=== PATIENT | female | born 1990 | race Caucasian/White ===

== ENCOUNTER 2021-07-04 14:37 | Outpatient (REF) | payer MEDICAID, SELFPAY ==
[2021-07-05 01:18] LABS: CT PCR NOT DETECTED (Not Detect.); NG PCR NOT DETECTED (Not Detect.)
[2021-07-05 09:30] LABS: BV Int Neg Control Negative (Negative); BV Int Pos Control Positive (Positive)
[2021-07-06 15:01] LABS: HPV mRNA E6/E7 Not Detected (Not Detected)
== END 2021-07-04 14:38 | disposition home or self-care (01) ==
LOC: HO.LAB 14:37
PROVIDERS: Visit Provider Obstetrics & Gynecology
DX: Z01.419 Encounter for gynecological examination (general) (routine) without abnormal findings (principal); Z11.3 Encounter for screening for infections with a predominantly sexual mode of transmission
CPT/HCPCS: 87480; 87491; 87510; 87591; 87624; 87660; 88142; 99212

== ENCOUNTER 2021-12-18 15:39 | Outpatient (REF) | payer MEDICAID, SELFPAY ==
[2021-12-18 18:34] LABS: Appearance Urine CLEAR; Color Urine YELLOW; Glucose Urine UA NEG (NEG); Leukocyte Esterase Urine NEG (NEG); Nitrite Urine NEG (NEG); UACC Culture Trigger NO; Urine Blood NEG (NEG); Urine Ketones NEG (NEG); Urine Protein 2+ MG/DL (NEG-TRACE)
[2021-12-18 18:58] LABS: Bacteria Urine 2+ /LPF; Mucus Urine 1+ /LPF; RBC Urine 0 /HPF (0); Squamous Epithelial Cell Urine 2+ /LPF; WBC Urine 0 /HPF (0-4)
[2021-12-19 03:04] LABS: CT PCR NOT DETECTED (Not Detect.); NG PCR NOT DETECTED (Not Detect.)
== END 2021-12-18 15:40 | disposition home or self-care (01) ==
LOC: HO.MANLDS 15:39
PROVIDERS: PCP Physician Assistant; Visit Provider Physician Assistant
DX: Z11.3 Encounter for screening for infections with a predominantly sexual mode of transmission (principal)
CPT/HCPCS: 81001; 87491; 87591

== ENCOUNTER 2022-09-19 15:09 | Outpatient (REF) | payer MEDICAID, SELFPAY ==
[2022-09-19 18:04] LABS: CT PCR NOT DETECTED (Not Detect.); NG PCR NOT DETECTED (Not Detect.)
[2022-09-20 08:55] LABS: HBsAGNum1 0.31 S/CO (0.00-0.99); HIV AB/AG Nonreactive (Nonreactive); HIV Num 1 0.07 S/CO (0.00-0.99); Hepatitis B Surface Antigen Negative (Negative); ~HepC Num1 0.11 S/CO (0.00-0.79); ~Hepatitis C Antibody Nonreactive (Nonreactive)
[2022-09-20 08:58] LABS: Syphilis Screen Nonreactive (Nonreactive)
[2022-09-20 12:31] LABS: BV Int Neg Control Negative (Negative); BV Int Pos Control Positive (Positive)
[2022-09-24 16:29] LABS: HPV mRNA E6/E7 rflx Not Detected (Not Detected)
== END 2022-09-19 15:10 | disposition home or self-care (01) ==
LOC: HO.LAB 15:09
PROVIDERS: PCP Physician Assistant; Visit Provider Obstetrics & Gynecology
DX: Z01.419 Encounter for gynecological examination (general) (routine) without abnormal findings (principal); Z11.3 Encounter for screening for infections with a predominantly sexual mode of transmission
CPT/HCPCS: 0353U; 86780; 86803; 87340; 87389; 87480; 87510; 87624; 87660; 88142

== ENCOUNTER 2023-08-07 14:36 | Outpatient (AMB) | payer MEDICAID, SELFPAY ==
[2023-08-07 14:38] VITALS: BP 106/60; BMI 24.0
--- NOTE | 2023-08-07 14:38 | MHC.OFFVIS ---
Intake Vital Signs 08/07/23 14:38 Height 5 ft 2 in Weight 131 lb BMI 24.0 BP 106/60 Intake Visit Reasons: irregular periods/ DO NOT RS Textiles Sales Representative Required: No Information Interpreted: non-clinical & clinical Inside Wirer: Inside Wirer Present (Rosmery GRIFFITH) Accompanied by: Self / Same As Patient Allergies No Known Allergies [No Known Allergies*] Allergy (Verified 08/07/23 14:45) Is last menstrual period known: Yes Last menstrual period: 07/23/23 HPI HPI Comments History of Present Illness Details Presenting complaining of irregular menstrual cycles the last 2 months. No associated hair growth or nipple discharge, last co testing was in 09/27 3- [facility] Medical History KWASI III (cervical intraepithelial neoplasia grade III) with severe dysplasia ASCUS of cervix with negative high risk HPV Social History Patient Tobacco Use Status: Never used Tobacco Female Reproductive History Menstrual Age of Menarche: 10 Date of last menstrual period: 07/23/23 Review of Systems Const All systems reviewed & are unremarkable except as noted in HPI and below Physical Exam Vital Signs: Last Vital Signs BP 106/60 08/07/23 14:38 BMI result Body Mass Index 24.0 General: Yes no CVA tenderness External Female Exam: normal external appearance and normal appearance of the urethra Speculum Exam - Vagina: normal appearance of the vagina, normal palpation, no lesions and no masses Speculum Exam - Cervix: normal appearance of the cervix, normal palpation, no lesions, no masses and nontender Bimanual exam- vagina & uterus: normal bimanual exam, normal palpation, uterine size normal, normal palpation, uterine shape normal, No Cervical tenderness present and non-tender Bimanual Exam- Adnexa, other: normal adnexae Back/Spine/Pelvis Back: no CVA tenderness Results AMB Test Urine AMB Test Urine Negative Last Edit by Rosmery Mcnair CMA on 08/07/23 14:48 Results Reviewed Results Reviewed: Laboratory Last Values Tst Clinic Negative 08/07/23 14:48 Assessment & Plan Assessment & Plan (1) Abnormal uterine bleeding: Code(s): N93.9 - Abnormal uterine and vaginal bleeding, unspecified Plan: Co testing not indicate, GC and chlamydia taken CBC, TSH, prolactin, HCG, and pelvic ultrasound ordered. Discussed with the patient the different causes of abnormal bleeding including thyroid disorders, uterine and ovarian pathology, endometrial hyperplasia, carcinoma and other potential causes. Discussed with the patient the work up including CBC (to r/o anemia), TSH, pelvic Ultrasound, endometrial biopsy to r/o endometrial pathology. All questions answered and the patient verbalized understanding. Instructed the patient to schedule an appointment for an endometrial biopsy in 2 weeks. Orders: Orders Complete Blood Count no Diff Today N93.9 - Abnormal uterine and vaginal bleeding, unspecified US pelvic and transvaginal Today N93.9 - Abnormal uterine and vaginal bleeding, unspecified TSH reflex Free T4 Today N93.9 - Abnormal uterine and vaginal bleeding, unspecified Prolactin Today N93.9 - Abnormal uterine and vaginal bleeding, unspecified AMB HCG Urine Test Today Z32.02 - Encounter for test, result negative CT NG by PCR Today Z01.419 - Encounter for gynecological examination (general) (routine) without abnormal findings HCG Quantitative Today N93.9 - Abnormal uterine and vaginal bleeding, unspecified Coding Level of Care Code Est Pt Level 3 (56086) Diagnoses Abnormal uterine bleeding N93.9
== END 2023-08-07 14:57 | disposition home or self-care (01) ==
PROVIDERS: PCP Physician Assistant; Visit Provider Obstetrics & Gynecology
DX: Z32.02 Encounter for pregnancy test, result negative (principal); N93.9 Abnormal uterine and vaginal bleeding, unspecified
CPT/HCPCS: 99213

== ENCOUNTER 2023-08-07 14:36 | Outpatient (REF) | payer MEDICAID, SELFPAY ==
[2023-08-07 15:35] LABS: Hematocrit 36.5 % (37.0-47.0); Mean Corpuscular HGB Conc 32.9 g/dl (31.0-35.0); Mean Corpuscular Volume 79.2 fL (80.0-98.0); Platelet Count 355 X10*3/uL (160-400); Red Blood Count 4.61 X10*6/uL (4.20-5.50); Red Cell Distribution Width 12.1 % (11.0-16.0); White Blood Count 8.6 X10*3/uL (4.8-10.8)
[2023-08-07 16:44] LABS: HCG Quantitative < 2 mIU/mL; TSH reflex Free T4 0.48 uIU/mL (0.32-4.0)
[2023-08-08 03:53] LABS: CT PCR DETECTED (Not Detect.); NG PCR NOT DETECTED (Not Detect.)
== END 2023-08-07 14:37 | disposition home or self-care (01) ==
LOC: HO.LAB 14:36
PROVIDERS: PCP Physician Assistant; Visit Provider Obstetrics & Gynecology
DX: Z32.02 Encounter for pregnancy test, result negative (principal); N93.9 Abnormal uterine and vaginal bleeding, unspecified
CPT/HCPCS: 0353U; 81025; 84146; 84443; 84702; 85027; 99212

== ENCOUNTER 2023-08-07 15:49 | Outpatient (REF) | payer MEDICAID, SELFPAY | END 2023-08-07 15:50 | disposition home or self-care (01) | LOC: HO.LNP 15:49 | PROVIDERS: Visit Provider Obstetrics & Gynecology | DX: Z13.89 Encounter for screening for other disorder (principal) ==

== ENCOUNTER 2023-08-20 11:37 | Outpatient (REF) | payer MEDICAID, SELFPAY | END 2023-08-20 11:38 | disposition home or self-care (01) | LOC: HO.LNP 11:37 | PROVIDERS: PCP Physician Assistant; Visit Provider Obstetrics & Gynecology | DX: A74.9 Chlamydial infection, unspecified (principal) | CPT/HCPCS: 0353U; 86780; 86803; 87340; 87389; 99212 ==

== ENCOUNTER 2023-08-20 11:37 | Outpatient (AMB) | payer MEDICAID, SELFPAY ==
[2023-08-20 11:44] VITALS: BP 120/70; BMI 23.8
--- NOTE | 2023-08-20 11:44 | MHC.OFFVIS ---
Intake Vital Signs 08/20/23 11:44 Height 5 ft 2 in Weight 130 lb 1.164 oz BMI 23.8 BP 120/70 Intake Visit Reasons: 2 week jaycee Hyster Machine Operator Required: No Information Interpreted: non-clinical & clinical Business Computers Teacher: Business Computers Teacher Present (Rosmery Mcnair GLADIS) Accompanied by: Self / Same As Patient Allergies No Known Allergies [No Known Allergies*] Allergy (Verified 08/20/23 11:45) Is last menstrual period known: Yes Last menstrual period: 08/09/23 HPI HPI Comments History of Present Illness Details The patient is presenting for a test of cure. The patient took the antibiotics course; she informed her partner who was treated too. The patient reports no unprotected intercourse to during the for 7 days of treatment [facility] Medical History KWASI III (cervical intraepithelial neoplasia grade III) with severe dysplasia ASCUS of cervix with negative high risk HPV Social History Patient Tobacco Use Status: Never used Tobacco Female Reproductive History Menstrual Age of Menarche: 10 Date of last menstrual period: 08/09/23 Review of Systems Const All systems reviewed & are unremarkable except as noted in HPI and below Physical Exam Vital Signs: Last Vital Signs BP 120/70 08/20/23 11:44 BMI result Body Mass Index 23.8 General: Yes no CVA tenderness External Female Exam: normal external appearance and normal appearance of the urethra Speculum Exam - Vagina: normal appearance of the vagina, normal palpation, no lesions and no masses Speculum Exam - Cervix: normal appearance of the cervix, normal palpation, no lesions, no masses and nontender Bimanual exam- vagina & uterus: normal bimanual exam, normal palpation, uterine size normal, normal palpation, uterine shape normal, No Cervical tenderness present and non-tender Bimanual Exam- Adnexa, other: normal adnexae Back/Spine/Pelvis Back: no CVA tenderness Assessment & Plan Assessment & Plan (1) Chlamydia: Comment: Treated, for test of cure Code(s): A74.9 - Chlamydial infection, unspecified Plan: GC and chlamydia taken, serology for STD including hepatitis-B surface antigen, hepatitis-C antibody, HIV and syphilis ordered. Instruction given to patient to schedule 3 months test of cure appointment. All questions answered, the patient verbalized understanding. Orders: Orders Syphilis Screen Today Z20.2 - Contact with and (suspected) exposure to infections with a predominantly sexual mode of transmission CT NG by PCR Today A74.9 - Chlamydial infection, unspecified HIV Ab/Ag Today Z20.2 - Contact with and (suspected) exposure to infections with a predominantly sexual mode of transmission Hepatitis C Antibody Today Z20.2 - Contact with and (suspected) exposure to infections with a predominantly sexual mode of transmission Hepatitis B Surface Antigen Today Z20.2 - Contact with and (suspected) exposure to infections with a predominantly sexual mode of transmission Coding Level of Care Code Est Pt Level 3 (60978) Diagnoses Chlamydia A74.9
== END 2023-08-20 11:56 | disposition home or self-care (01) ==
PROVIDERS: PCP Physician Assistant; Visit Provider Obstetrics & Gynecology
DX: A74.9 Chlamydial infection, unspecified (principal)
CPT/HCPCS: 99213

== ENCOUNTER 2023-08-20 12:00 | Outpatient (REF) | payer MEDICAID, SELFPAY ==
[2023-08-20 13:22] LABS: Syphilis Screen Nonreactive (Nonreactive)
[2023-08-20 16:24] LABS: CT PCR DETECTED (Not Detect.); NG PCR NOT DETECTED (Not Detect.)
[2023-08-21 08:04] LABS: HBsAGNum1 0.49 S/CO (0.00-0.99); HIV AB/AG Nonreactive (Nonreactive); HIV Num 1 0.08 S/CO (0.00-0.99); Hepatitis B Surface Antigen Negative (Negative); ~HepC Num1 0.13 S/CO (0.00-0.79); ~Hepatitis C Antibody Nonreactive (Nonreactive)
== END 2023-08-20 12:01 | disposition home or self-care (01) ==
LOC: HO.LAB 12:00
PROVIDERS: Visit Provider Obstetrics & Gynecology
DX: Z11.4 Encounter for screening for human immunodeficiency virus [HIV] (principal); Z20.2 Contact with and (suspected) exposure to infections with a predominantly sexual mode of transmission; A74.9 Chlamydial infection, unspecified
CPT/HCPCS: 0353U; 86780; 86803; 87340; 87389

== ENCOUNTER 2023-09-11 12:34 | Outpatient (REF) | payer MEDICAID, SELFPAY | END 2023-09-11 12:35 | disposition home or self-care (01) | LOC: HO.LNP 12:34 | PROVIDERS: PCP Physician Assistant; Visit Provider Obstetrics & Gynecology | DX: A74.9 Chlamydial infection, unspecified (principal); Z11.3 Encounter for screening for infections with a predominantly sexual mode of transmission | CPT/HCPCS: 0353U; 99212 ==

== ENCOUNTER 2023-09-11 12:34 | Outpatient (AMB) | payer MEDICAID, SELFPAY ==
--- NOTE | 2023-09-11 12:40 | MHC.OFFVIS ---
Intake Vital Signs 09/11/23 12:41 Height 5 ft 2 in BP 104/62 Intake Visit Reasons: NITIN 2 week Administrative Assistant Coordinator: Administrative Assistant Coordinator Present (Rosmery) Allergies No Known Allergies [No Known Allergies*] Allergy (Verified 09/11/23 12:41) Is last menstrual period known: Yes Last menstrual period: 09/08/23 HPI HPI Comments History of Present Illness Details The patient is presenting for a test of cure. The patient took the antibiotics course; she informed her partner who was treated too. The patient reports no intercourse since then. [facility] Medical History KWASI III (cervical intraepithelial neoplasia grade III) with severe dysplasia ASCUS of cervix with negative high risk HPV Social History Patient Tobacco Use Status: Never used Tobacco Female Reproductive History Menstrual Age of Menarche: 10 Date of last menstrual period: 09/08/23 Review of Systems Const All systems reviewed & are unremarkable except as noted in HPI and below Physical Exam Vital Signs: Last Vital Signs BP 104/62 09/11/23 12:41 General: Yes no CVA tenderness External Female Exam: normal external appearance and normal appearance of the urethra Speculum Exam - Vagina: normal appearance of the vagina, normal palpation, no lesions and no masses Speculum Exam - Cervix: normal appearance of the cervix, normal palpation, no lesions, no masses and nontender Bimanual exam- vagina & uterus: normal bimanual exam, normal palpation, uterine size normal, normal palpation, uterine shape normal, No Cervical tenderness present and non-tender Bimanual Exam- Adnexa, other: normal adnexae Back/Spine/Pelvis Back: no CVA tenderness Assessment & Plan Assessment & Plan (1) Chlamydia: Comment: Treated, for test of cure Code(s): A74.9 - Chlamydial infection, unspecified Plan: GC/CT taken. Will Check the results and treat accordingly. Coding Level of Care Code Est Pt Level 3 (05488) Diagnoses Chlamydia A74.9
[2023-09-11 12:41] VITALS: BP 104/62
== END 2023-09-11 13:07 | disposition home or self-care (01) ==
LOC: HO.HWS 12:34
PROVIDERS: PCP Physician Assistant; Referring Provider Physician Assistant; Visit Provider Obstetrics & Gynecology
DX: A74.9 Chlamydial infection, unspecified (principal)
CPT/HCPCS: 99213

== ENCOUNTER 2023-09-24 15:19 | Outpatient (AMB) | payer MEDICAID, SELFPAY ==
--- NOTE | 2023-09-24 15:21 | A.OFFVIS_ITS ---
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 No complaints. Last Pap/HPV was negative in 09/30 [facility] Medical History (Updated 09/24/23 @ 15:32 by Sam Desai MD) KWASI III (cervical intraepithelial neoplasia grade III) with severe dysplasia ASCUS of cervix with negative high risk HPV Family History Maternal Grandmother Stroke Diabetes HTN (hypertension) Social History Household Members Other:: son ,roomate Housing: Apartment Alcohol intake: former Patient Tobacco Use Status: Current someday Tobacco user Years Smoked: social smoker Current occupational status: employed Current occupation: [employer] Sexually active: Yes Sexual orientation: Straight/Heterosexual Gender identity: Female Female Reproductive History Menstrual Age of Menarche: 10 Date of last menstrual period: 09/08/23 Total pregnancies: 1 Full term: 1 Number of Living Children: 1 Date of last pap smear: 09/20/22 Review of Systems Const All systems reviewed & are unremarkable except as noted in HPI and below Card Reports as per HPI Resp Reports as per HPI GI Reports as per HPI and Reports no additional complaints Reports as per HPI Physical Exam Vital Signs: Last Vital Signs BP 98/62 09/24/23 15:24 BMI result Body Mass Index 23.8 Const General: cooperative, healthy appearing and comfortable Chest Chest palpation & inspection: normal inspection of the chest and normal palpation of entire chest wall Breast/axilla inspection: normal inspection of the breasts and normal inspection of the axillae Breast/axilla palpation: normal palpation of the breasts, normal palpation of the axillae and no axillary lymphadenopathy Resp Effort & Inspection: normal respiratory effort Auscultation: clear to auscultation bilaterally Percussion: percussion normal Cardio Palpation: normal PMI Rate: regular rate Rhythm: regular rhythm Heart sounds: no murmurs and no rubs Peripheral pulses: Peripheral pulses 2+ throughout GI Inspection: Yes normal to inspection Palpation (GI): Soft to palpation, nontender, no guarding, not rigid and No hepatosplenomegaly present Percussion: Yes normal to percussion Auscultation: normal bowel sounds Rectal Exam - Female: deferred General: Yes bladder normal to palpation External Female Exam: No lesion Speculum Exam - Vagina: normal appearance of the vagina, normal palpation, normal vaginal discharge and not erythematous Speculum Exam - Cervix: normal appearance of the cervix and normal palpation Bimanual exam- vagina & uterus: normal bimanual exam, normal palpation, uterine size normal, bladder normal to palpation, consistency normal and normal palpation Bimanual Exam- Adnexa, other: normal adnexae, no masses and no tenderness Assessment & Plan Assessment & Plan (1) Well woman exam: Comment: 04/27 KWASI 1 preceded by KWASI 3 in 2014 status post LEEP with positive margin followed by negative co testing in 06/28 Code(s): Z01.419 - Encounter for gynecological examination (general) (routine) without abnormal findings Plan: Cotesting done. Counseled the patient about the recommended dietary allowance of 1000 mg of Calcium & 600 IU of vitamin D. The patient was instructed to perform monthly self-breast exams and to schedule an annual exam in a year; All questions answered and the patient verbalized understanding. Instructed the patient to schedule annual exam in a year Coding Level of Care Code Est Pt Prev Care 18-39y(75795) Diagnoses Well woman exam Z01.419
[2023-09-24 15:24] VITALS: BP 98/62; BMI 23.8
== END 2023-09-24 15:52 | disposition home or self-care (01) ==
LOC: HO.HWS 15:19
PROVIDERS: PCP Physician Assistant; Referring Provider Physician Assistant; Visit Provider Obstetrics & Gynecology
DX: Z01.419 Encounter for gynecological examination (general) (routine) without abnormal findings (principal)
CPT/HCPCS: 99395

== ENCOUNTER 2023-09-24 15:19 | Outpatient (REF) | payer MEDICAID, SELFPAY ==
[2023-09-27 04:49] LABS: HPV mRNA E6/E7 rflx Not Detected (Not Detected)
== END 2023-09-24 15:20 | disposition home or self-care (01) ==
LOC: HO.LNP 15:19
PROVIDERS: PCP Physician Assistant; Visit Provider Obstetrics & Gynecology
DX: Z01.419 Encounter for gynecological examination (general) (routine) without abnormal findings (principal); Z11.51 Encounter for screening for human papillomavirus (HPV)
CPT/HCPCS: 87624; 88142; 99395

== ENCOUNTER 2023-10-01 14:38 | Outpatient (REF) | payer MEDICAID, SELFPAY ==
--- NOTE | ~2023-10-01 | US_ITS ---
EXAMINATION: US PELVIS CLINICAL INFORMATION: Abnormal uterine and vaginal bleeding, unspecified COMPARISON: None available. TECHNIQUE: Ultrasound of the pelvis is performed using both transabdominal and transvaginal transducers along with Doppler. Transvaginal imaging is performed due to inadequate visualization transabdominally. FINDINGS: Uterus: The uterus is anteverted and measures 8.3 x 4.4 x 5.6 cm. There are multiple small fibroids includin.1 x 1.0 x 1.0 cm exophytic anterior right 1.4 x 1.0 x 1.4 cm subserosal posterior right 1.7 x 1.4 x 1.8 cm subserosal posterior right 1.7 x 1.3 x 1.7 cm subserosal posterior right 1.6 x 1.4 x 1.9 cm subserosal/partly exophytic anterior left The endometrium measures 0.9 cm. The cervix is status post procedure with shadowing, likely scar seen. Adnexa: Both ovaries are visualized. There is normal color flow to the adnexa. There is no ovarian torsion. There is no pelvic ascites or fluid collection. Both ovaries are normal in appearance. Right ovary measures 4.1 x 2.5 x 1.7 cm. Volume 9.1 mL. Left ovary measures 3.5 x 2.7 x 2.1 cm. Volume 10.4 mL. US/US pelvic and transvaginal IMPRESSION: 1. Multiple small fibroids. 2. Normal ovaries.
== END 2023-10-01 14:39 | disposition home or self-care (01) ==
LOC: HO.US 14:38
PROVIDERS: PCP Physician Assistant; Visit Provider Obstetrics & Gynecology
DX: N93.9 Abnormal uterine and vaginal bleeding, unspecified (principal)
CPT/HCPCS: 76830; 76856

== ENCOUNTER 2023-10-29 14:34 | Outpatient (REF) | payer MEDICAID, SELFPAY | END 2023-10-29 14:35 | disposition home or self-care (01) | LOC: HO.LNP 14:34 | PROVIDERS: PCP Physician Assistant; Visit Provider Obstetrics & Gynecology | DX: N93.9 Abnormal uterine and vaginal bleeding, unspecified (principal) | CPT/HCPCS: 58100; 81025; 88305 ==

== ENCOUNTER 2023-10-29 14:34 | Outpatient (AMB) | payer MEDICAID, SELFPAY ==
--- NOTE | 2023-10-29 14:37 | MHC.OFFVIS ---
Intake Vital Signs 10/29/23 14:51 Height 5 ft 2 in Weight 130 lb 1.164 oz BMI 23.8 BP 110/74 Intake Visit Reasons: Us follow up/EMB Computer Applications Engineer Required: No Information Interpreted: non-clinical & clinical Milling General Superintendent: Milling General Superintendent Present (Rosmery GRIFFITH) Accompanied by: Self / Same As Patient Allergies No Known Allergies [No Known Allergies*] Allergy (Verified 10/29/23 14:52) Is last menstrual period known: Yes Last menstrual period: 10/27/23 HPI HPI Comments History of Present Illness Details Presenting for EMB PFSH Medical History KWASI III (cervical intraepithelial neoplasia grade III) with severe dysplasia ASCUS of cervix with negative high risk HPV Family History Maternal Grandmother Stroke Diabetes HTN (hypertension) Social History Household Members Other:: son ,roomate Housing: Apartment Alcohol intake: former Patient Tobacco Use Status: Current someday Tobacco user Years Smoked: social smoker Current occupational status: employed Current occupation: [employer] Sexual orientation: Straight/Heterosexual Gender identity: Female Female Reproductive History Menstrual Age of Menarche: 10 Date of last menstrual period: 10/27/23 Review of Systems Const All systems reviewed & are unremarkable except as noted in HPI and below Reports as per HPI and Reports no additional complaints GI Reports no additional complaints Reports no additional complaints Office Procedures Endometrial Biopsy Details: The patient was counseled regarding the indication and benefits of endometrial sampling to rule out endometrial pathology including not limited to endometrial hyperplasia or endometrial cancer and others; The alternatives (Either do nothing vs. hysteroscopy D&C) & the risks were discussed with the patient including but not limited: pain, uterine perforation, bleeding, infection, possible injury to bladder, bowel, ureter, possible need for blood transfusion with all its possible risks. The patient verbalized understanding all questions answered and signed consent. Urine test done in the office was negative The patient was placed into the dorsal lithotomy position; a speculum was inserted in the vagina. Using aseptic technique for the procedure, the cervix was cleansed with Betadine. The anterior lip of the cervix was grasped with a single tooth tenaculum. The uterus was sounded to 7 cm with a 4 mm Pipelle was used. Tissues samples were obtained and placed in formalin, in a patient labeled container and sent to the pathology department. At the end of the procedure, there was minimal bleeding noted The patient tolerated the procedure well and was discharged in good condition with the following instructions: Nothing in the vagina until the bleeding stops. No sex until the bleeding stops, to call if any of the following occurs: fever (>100.4), flu-like symptoms, abdominal pain, heavy bleeding, four smelling vaginal discharge. The patient was instructed to schedule a Follow up appointment in 2 weeks to discuss pathology results of the biopsy and treatment options. This note was generated with a voice recognition program. Some errors may have been overlooked during the review of this note. Sometimes these errors may affect the content or meaning of a given sentence. [id number] Biopsy Assessment & Plan Assessment & Plan (1) Abnormal uterine bleeding: Code(s): N93.9 - Abnormal uterine and vaginal bleeding, unspecified Plan: EMB done, see procedure note Orders: Orders AMB Endometrial Biopsy Today N93.9 - Abnormal uterine and vaginal bleeding, unspecified Coding Level of Care Code Procedure Only Diagnoses Abnormal uterine bleeding N93.9 CPT Codes Endometrial Biopsy - CPT: 13360-Ymktqmpmegj Biopsy ([id number])
[2023-10-29 14:51] VITALS: BP 110/74; BMI 23.8
== END 2023-10-29 15:02 | disposition home or self-care (01) ==
LOC: HO.HWS 14:35
PROVIDERS: PCP Physician Assistant; Visit Provider Obstetrics & Gynecology
DX: N93.9 Abnormal uterine and vaginal bleeding, unspecified (principal)
CPT/HCPCS: 58100

== ENCOUNTER 2023-11-20 14:43 | Outpatient (AMB) | payer MEDICAID, SELFPAY ==
[2023-11-20 14:55] VITALS: BMI 23.8
--- NOTE | 2023-11-20 14:55 | A.OFFVIS_ITS ---
Intake Vital Signs 11/20/23 14:55 Height 5 ft 2 in Weight 130 lb 1.164 oz BMI 23.8 Intake Visit Reasons: 3 month NITIN/emb follow up Press Puller Required: No Information Interpreted: non-clinical & clinical Gas Compressor Turbine Operator: Gas Compressor Turbine Operator Present (Rosmery GRIFFITH) Accompanied by: Self / Same As Patient Allergies No Known Allergies [No Known Allergies*] Allergy (Verified 11/20/23 14:56) HPI HPI Comments History of Present Illness Details The patient is presenting after endometrial biopsy and [address]IN for positive [address] treated with follow-up negative test of cure. The patient has no complaints, no vaginal bleeding, no feverishness chills or abdominal pain. The following workup was done.: H&H= 12/36.5 TSH, prolactin, hCG were negative. Endometrial biopsy pathology showed secretory endometrium with no evidence of hyperplasia and/or malignancy. Co testing was done was negative. Pelvic ultrasound showed the following: Uterus: The uterus is anteverted and measures 8.3 x 4.4 x 5.6 cm. There are multiple small fibroids includin.1 x 1.0 x 1.0 cm exophytic anterior ri ght 1.4 x 1.0 x 1.4 cm subserosal posterior right 1.7 x 1.4 x 1.8 cm subserosal posterior right 1.7 x 1.3 x 1.7 cm subserosal posterior right 1.6 x 1.4 x 1.9 cm subserosal/partly exo phytic anterior left The endometrium measures 0.9 cm. The cervix is status post procedure with shadowing, likely scar seen. Adnexa: Both ovaries are visualized. There is normal color flow to the adnexa. There is no ovarian torsion. There is no pelvic ascites or fluid collection. Both ovaries are normal in appearance. Right ovary measures 4.1 x 2.5 x 1.7 cm. Volume 9.1 mL. Left ovary measures 3.5 x 2.7 x 2.1 cm. Volume 10.4 mL. [facility] Medical History KWASI III (cervical intraepithelial neoplasia grade III) with severe dysplasia ASCUS of cervix with negative high risk HPV Family History Maternal Grandmother Stroke Diabetes HTN (hypertension) Social History Household Members Other:: son ,roomate Housing: Apartment Alcohol intake: former Patient Tobacco Use Status: Current someday Tobacco user Years Smoked: social smoker Current occupational status: employed Current occupation: [employer] Sexual orientation: Straight/Heterosexual Gender identity: Female Female Reproductive History Menstrual Age of Menarche: 10 Review of Systems Const All systems reviewed & are unremarkable except as noted in HPI and below Reports as per HPI and Reports no additional complaints GI Reports no additional complaints Reports no additional complaints Physical Exam Vital Signs: BMI result Body Mass Index 23.8 General: Yes no CVA tenderness External Female Exam: normal external appearance and normal appearance of the urethra Speculum Exam - Vagina: normal appearance of the vagina, normal palpation, no lesions and no masses Speculum Exam - Cervix: normal appearance of the cervix, normal palpation, no lesions, no masses and nontender Bimanual exam- vagina & uterus: normal bimanual exam, normal palpation, uterine size normal, normal palpation, uterine shape normal, No Cervical tenderness present and non-tender Bimanual Exam- Adnexa, other: normal adnexae Back/Spine/Pelvis Back: no CVA tenderness Assessment & Plan Assessment & Plan (1) Abnormal uterine bleeding: Code(s): N93.9 - Abnormal uterine and vaginal bleeding, unspecified Plan: See discussion about uterine myoma (2) 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 Discussed with the patient risk of myosarcoma and symptoms that are caused by myomas including but not limited to pelvic pain, pressure symptoms, abnormal uterine bleeding. In addition discussed with the patient options of treatment for myomas including: Serial ultrasounds periodically to follow-up on the size of the myoma while targeting the treatment against fibroids related symptoms but not limited to: control pills, Mirena IUD, both as method of control if the patient is not interested in future fertility, progesterone treatment and other options in patients who are not interested in future fertility including GnRH agonist/antagonist, uterine artery embolization or endometrial ablation versus surgical treatment including hysterectomy; myomectomy is an other surgical options of treatment. All pros and cons, risks and benefits of all options were discussed with the patient. The patient understands that delay in surgical treatment in case of myosarcoma can affect her prognosis, after further discussion, the patient decided to think about it and get back to us. (3) Chlamydia: Comment: Treated, for test of cure Code(s): A74.9 - Chlamydial infection, unspecified Plan: GC/CT taken (4) Screen for STD (sexually transmitted disease): Code(s): Z11.3 - Encounter for screening for infections with a predominantly sexual mode of transmission Plan: STD screening tests done includes: BV panel for trichomonas, GC/CT will send patient for serology std screening for HIV, RPR, Hep b s Ag, HepC Ab. Instructions given the patient to schedule a follow-up appointment for repeat serology screen in 6 months for possible false negatives. Orders: Orders Hepatitis C Antibody Today Z20.2 - Contact with and (suspected) exposure to infections with a predominantly sexual mode of transmission HIV Ab/Ag Today Z20.2 - Contact with and (suspected) exposure to infections with a predominantly sexual mode of transmission Syphilis Screen Today Z20.2 - Contact with and (suspected) exposure to inf ections with a predominantly sexual mode of transmission CT NG by PCR Today A74.9 - Chlamydial infection, unspecified Hepatitis B Surface Antigen Today Z20.2 - Contact with and (suspected) exposure to infections with a predominantly sexual mode of transmission Coding Level of Care Code Est Pt Level 3 (92977) Diagnoses Abnormal uterine bleeding N93.9 Uterine myoma D25.9 Chlamydia A74.9 Screen for STD (sexually transmitted disease) Z11.3
== END 2023-11-20 16:05 | disposition home or self-care (01) ==
PROVIDERS: PCP Physician Assistant; Visit Provider Obstetrics & Gynecology
DX: N93.9 Abnormal uterine and vaginal bleeding, unspecified (principal); D25.9 Leiomyoma of uterus, unspecified; A74.9 Chlamydial infection, unspecified; Z11.3 Encounter for screening for infections with a predominantly sexual mode of transmission
CPT/HCPCS: 99213

== ENCOUNTER 2023-11-20 14:43 | Outpatient (REF) | payer MEDICAID, SELFPAY | END 2023-11-20 14:44 | disposition home or self-care (01) | LOC: HO.LNP 14:43 | PROVIDERS: PCP Physician Assistant; Visit Provider Obstetrics & Gynecology | DX: N93.9 Abnormal uterine and vaginal bleeding, unspecified (principal); D25.9 Leiomyoma of uterus, unspecified; A74.9 Chlamydial infection, unspecified; Z20.2 Contact with and (suspected) exposure to infections with a predominantly sexual mode of transmission | CPT/HCPCS: 0353U; 36415; 86780; 86803; 87340; 87389; 87480; 87510; 87660; 99212 ==

== ENCOUNTER 2023-11-20 15:40 | Outpatient (REF) | payer MEDICAID, SELFPAY ==
[2023-11-21 03:50] LABS: Syphilis Screen Nonreactive (Nonreactive)
[2023-11-21 04:32] LABS: HBsAGNum1 0.34 S/CO (0.00-0.99); HIV AB/AG Nonreactive (Nonreactive); HIV Num 1 0.07 S/CO (0.00-0.99); Hepatitis B Surface Antigen Negative (Negative); ~HepC Num1 0.14 S/CO (0.00-0.79); ~Hepatitis C Antibody Nonreactive (Nonreactive)
[2023-11-21 11:38] LABS: CT PCR DETECTED (Not Detect.); NG PCR NOT DETECTED (Not Detect.)
[2023-11-21 13:56] LABS: BV Int Neg Control Negative (Negative); BV Int Pos Control Positive (Positive)
== END 2023-11-20 15:41 | disposition home or self-care (01) ==
LOC: HO.LAB 15:40
PROVIDERS: Visit Provider Obstetrics & Gynecology
DX: A74.9 Chlamydial infection, unspecified (principal); Z20.2 Contact with and (suspected) exposure to infections with a predominantly sexual mode of transmission
CPT/HCPCS: 0353U; 36415; 86780; 86803; 87340; 87389; 87480; 87510; 87660

== ENCOUNTER 2023-12-17 08:43 | Outpatient (REF) | payer MEDICAID, SELFPAY ==
[2023-12-17 13:45] LABS: CT PCR DETECTED (Not Detect.); NG PCR NOT DETECTED (Not Detect.)
[2023-12-18 13:03] LABS: BV Int Neg Control Negative (Negative); BV Int Pos Control Positive (Positive)
== END 2023-12-17 08:44 | disposition home or self-care (01) ==
LOC: HO.LNP 08:43
PROVIDERS: PCP Physician Assistant; Visit Provider Obstetrics & Gynecology
DX: A74.9 Chlamydial infection, unspecified (principal); D06.9 Carcinoma in situ of cervix, unspecified
CPT/HCPCS: 0353U; 87480; 87510; 87660; 99212

== ENCOUNTER 2023-12-17 08:43 | Outpatient (AMB) | payer MEDICAID, SELFPAY ==
[2023-12-17 08:49] VITALS: BP 100/64; BMI 23.8
--- NOTE | 2023-12-17 08:49 | MHC.OFFVIS ---
Intake Vital Signs 12/17/23 08:49 Height 5 ft 2 in Weight 130 lb BMI 23.8 BP 100/64 Intake Visit Reasons: NITIN In Shop Service Technician Required: No Information Interpreted: non-clinical & clinical Assistant Professor Of Music: Assistant Professor Of Music Present (Aidyn) Allergies No Known Allergies [No Known Allergies*] Allergy (Verified 12/17/23 08:49) Post menopausal: No HPI HPI Comments History of Present Illness Details The patient is presenting for a test of cure for positive chlamydia on 11/19. The patient took the antibiotics course; she informed her partner who was treated too. The patient reports no intercourse since then. [facility] Medical History KWASI III (cervical intraepithelial neoplasia grade III) with severe dysplasia ASCUS of cervix with negative high risk HPV Family History Maternal Grandmother Stroke Diabetes HTN (hypertension) Social History Household Members Other:: son ,roomate Housing: Apartment Alcohol intake: former Patient Tobacco Use Status: Current someday Tobacco user Years Smoked: social smoker Current occupational status: employed Current occupation: [employer] Sexual orientation: Straight/Heterosexual Gender identity: Female Female Reproductive History Menstrual Age of Menarche: 10 control method: none Date of last pap smear: 09/25/23 (negative) Review of Systems Const All systems reviewed & are unremarkable except as noted in HPI and below Physical Exam Vital Signs: Last Vital Signs BP 100/64 12/17/23 08:49 BMI result Body Mass Index 23.8 General: Yes no CVA tenderness External Female Exam: normal external appearance and normal appearance of the urethra Speculum Exam - Vagina: normal appearance of the vagina, normal palpation, no lesions and no masses Speculum Exam - Cervix: normal appearance of the cervix, normal palpation, no lesions, no masses and nontender Bimanual exam- vagina & uterus: normal bimanual exam, normal palpation, uterine size normal, normal palpation, uterine shape normal, No Cervical tenderness present and non-tender Bimanual Exam- Adnexa, other: normal adnexae Back/Spine/Pelvis Back: no CVA tenderness Assessment & Plan Assessment & Plan (1) Chlamydia: Comment: Treated, for test of cure Code(s): A74.9 - Chlamydial infection, unspecified Plan: GC and chlamydia was BV panel collected, instructions given the patient to schedule a 3 months test of cure appointment. All questions answered, the patient verbalized understanding Coding Level of Care Code Est Pt Level 3 (36214) Diagnoses Chlamydia A74.9
== END 2023-12-17 09:03 | disposition home or self-care (01) ==
PROVIDERS: PCP Physician Assistant; Referring Provider Physician Assistant; Visit Provider Obstetrics & Gynecology
DX: A74.9 Chlamydial infection, unspecified (principal)
CPT/HCPCS: 99213

== ENCOUNTER 2024-05-12 14:36 | Outpatient (REF) | payer MEDICAID, SELFPAY | END 2024-05-12 14:37 | disposition home or self-care (01) | LOC: HO.LNP 14:36 | PROVIDERS: PCP Physician Assistant; Visit Provider Obstetrics & Gynecology | DX: A74.9 Chlamydial infection, unspecified (principal); Z20.2 Contact with and (suspected) exposure to infections with a predominantly sexual mode of transmission | CPT/HCPCS: 0352U; 86780; 86803; 87340; 87389; 87491; 87591; 99212 ==

== ENCOUNTER 2024-05-12 14:36 | Outpatient (AMB) | payer SELFPAY ==
[2024-05-12 14:49] VITALS: BMI 19.4
--- NOTE | 2024-05-12 14:49 | MHC.OFFVIS ---
Vital Signs 05/12/24 14:49 Height 5 ft 2 in Weight 105 lb 13.15 oz BMI 19.4 Intake Visit Reasons: NITIN Perioperative Manager Required: No Information Interpreted: non-clinical & clinical Research Associate Molecular Biology: Research Associate Molecular Biology Present (Rosmery GRIFFITH) Accompanied by: Self / Same As Patient Allergies No Known Allergies [No Known Allergies*] Allergy (Verified 05/12/24 14:52) HPI Comments Details: The patient is presenting for a test of cure. The patient had positive chlamydia in 11/29 followed by 12/30. The patient took the antibiotics course; she informed her partner who was treated too. The patient reports no intercourse since then. [facility] Medical History KWASI III (cervical intraepithelial neoplasia grade III) with severe dysplasia ASCUS of cervix with negative high risk HPV Family History Maternal Grandmother Stroke Diabetes HTN (hypertension) Social History Household Members Other:: son ,roomate Housing: Apartment Alcohol intake: former Patient Tobacco Use Status: Current someday Tobacco user Years Smoked: social smoker Current occupational status: employed Current occupation: [employer] Sexual orientation: Straight/Heterosexual Gender identity: Female Female Reproductive History Menstrual Age of Menarche: 10 Review of Systems Const All systems reviewed & are unremarkable except as noted in HPI and below Physical Exam Vital Signs: BMI result Body Mass Index 19.4 General: Yes no CVA tenderness External Female Exam: normal external appearance and normal appearance of the urethra Speculum Exam - Vagina: normal appearance of the vagina, normal palpation, no lesions and no masses Speculum Exam - Cervix: normal appearance of the cervix, normal palpation, no lesions, no masses and nontender Bimanual exam- vagina & uterus: normal bimanual exam, normal palpation, uterine size normal, normal palpation, uterine shape normal, No Cervical tenderness present and non-tender Bimanual Exam- Adnexa, other: normal adnexae Back/Spine/Pelvis Back: no CVA tenderness Assessment & Plan Assessment & Plan (1) Chlamydia: Comment: Treated, for test of cure Code(s): A74.9 - Chlamydial infection, unspecified Category: Medical Plan: GC and chlamydia cultures with BV panel taken. will repeat screening for STI, HepBs Ag, HIV, RPR, Hep C Ab ordered. Instructions given the patient to schedule a 3 months NITIN appointment. Orders: Orders HIV Ab/Ag Today Z20.2 - Contact with and (suspected) exposure to infections with a predominantly sexual mode of transmission Hepatitis C Antibody Today Z20.2 - Contact with and (suspected) exposure to infections with a predominantly sexual mode of transmission Syphilis Screen Today Z20.2 - Contact with and (suspected) exposure to infections with a predominantly sexual mode of transmission Hepatitis B Surface Antigen Today Z20.2 - Contact with and (suspected) exposure to infections with a predominantly sexual mode of transmission Coding Level of Care Code Est Pt Level 3 (53271) Diagnoses Chlamydia A74.9
== END 2024-05-12 16:00 | disposition home or self-care (01) ==
PROVIDERS: PCP Physician Assistant; Visit Provider Obstetrics & Gynecology
DX: A74.9 Chlamydial infection, unspecified (principal)
CPT/HCPCS: 99213

== ENCOUNTER 2024-05-12 15:12 | Outpatient (REF) | payer MEDICAID, SELFPAY ==
[2024-05-12 17:35] LABS: CT PCR NOT DETECTED (Not Detect.); NG PCR NOT DETECTED (Not Detect.)
[2024-05-12 17:51] LABS: Bacterial Vaginosis PCR POSITIVE (Negative); Candida Group PCR NOT DETECTED (Not Detect); Candida glab krusei PCR NOT DETECTED (Not Detect); Trichomonas vaginalis PCR NOT DETECTED (Not Detect)
[2024-05-13 08:08] LABS: HBsAGNum1 0.37 S/CO (0.00-0.99); HIV AB/AG Nonreactive (Nonreactive); HIV Num 1 0.12 S/CO (0.00-0.99); Hepatitis B Surface Antigen Negative (Negative); ~HepC Num1 0.13 S/CO (0.00-0.79); ~Hepatitis C Antibody Nonreactive (Nonreactive)
[2024-05-13 08:17] LABS: Syphilis Screen Nonreactive (Nonreactive)
== END 2024-05-12 15:13 | disposition home or self-care (01) ==
LOC: HO.LAB 15:12
PROVIDERS: Visit Provider Obstetrics & Gynecology
DX: A74.9 Chlamydial infection, unspecified (principal); Z20.2 Contact with and (suspected) exposure to infections with a predominantly sexual mode of transmission
CPT/HCPCS: 0352U; 86780; 86803; 87340; 87389; 87491; 87591